=== PATIENT | male | born 1980 | race Hispanic/Latino ===

== ENCOUNTER 2021-07-17 17:17 | Emergency (ER) | payer MEDICARE ==
[~2021-07-17] VITALS: Ht 162.6 cm; Wt 63.5 kg
[2021-07-17] MEDS ORDERED: CEFTRIAXONE 1 GM VIAL IM ONE (18:00)
[2021-07-17] MEDS ORDERED: CEFDINIR300 MG PO (18:01)
[2021-07-17] MEDS ORDERED: LIDOCAINE HCL 2% LOCAL INJ 5 ML SDV VIAL INJ ONE (18:08)
== END 2021-07-17 18:18 | disposition home or self-care (01) ==
LOC: FSED 17:30
DX: N39.0 Urinary tract infection, site not specified (principal); N31.9 Neuromuscular dysfunction of bladder, unspecified; Q05.9 Spina bifida, unspecified
CPT/HCPCS: 87086; 87186; 99283; J0696; J2001